=== PATIENT | male | born 1985 | race Caucasian/White ===

== ENCOUNTER 2019-04-30 01:06 | Observation (INO) ==
[2019-04-30] MEDS ORDERED: HYDROmorphone 2 MG/1 ML VIAL IV PRN (02:00)
[2019-04-30] MEDS ORDERED: ONDANSETRON 4 MG/2 ML VIAL IV PRN (02:00)
[2019-04-30] MEDS ORDERED: ACETAMINOPHEN 325 MG TABLET PO PRN (02:00)
[2019-04-30 02:19] LABS: Basophils % 0.4 % (0.0-0.8); Eosinophils % 0.2 % (0.00-10.9); Hematocrit 49.8 VOL% (42.0-52.0); Hemoglobin 16.8 GM/DL (14.0-18.0); Immature Granulocytes % 0.3 %; Immature Granulocytes Absolute 0.03 #; Lymphocytes # 1.6 10*3/uL (1.4-4.0); Lymphocytes % 15.7 % (21.2-54.2); Mean Corpuscular HGB Conc 33.7 GM/DL (32-36); Monocytes % 10.4 % (1.7-12.7); Platelet Count 283 T/CUMM (130-400); Red Blood Count 6.07 MC/CUMM (3.8-5.5); Red Cell Distribution Width 13.8 % (9.3-17.3); White Blood Count 10.4 T/CUMM (4-12)
[2019-04-30 02:31] LABS: Albumin 4.3 G/DL (3.4-5.0); Bilirubin,Total 0.6 MG/DL (0.2-1.0); Osmolality,Calculated 281.5 MOS/KG (273-304)
[2019-04-30] MEDS: SODIUM CHLORIDE 0.9% 1,000 ML IV SCH ×2 (03:41→11:28)
[2019-04-30] MEDS ORDERED: PANTOPRAZOLE 40 MG VIAL IV SCH (09:00)
[2019-04-30 11:47] VITALS: BP 120/68
[2019-04-30] MEDS ORDERED: ENOXAPARIN 40 MG/0.4 ML SYRINGE SUBCUT SCH (20:00)
== END 2019-04-30 13:49 | disposition home or self-care (01) ==
LOC: EDUNIT# → EDBD → N.ED 01:06 → N.EDINP 01:06 → N.3E 02:50
PROVIDERS: ADMIT Student in an Organized Health Care Education/Training Program; ATTEND Student in an Organized Health Care Education/Training Program